=== PATIENT | female | born 1990 | race African-American/Black ===

== ENCOUNTER 2016-09-21 12:39 | Emergency (ER) | payer OTHER ==
[~2016-09-21] VITALS: Ht 157.5 cm; Wt 76.6 kg
[~2016-09-21 12:39] MED LIST: FIORICET 50-301 EACH PO; NAPROSYN500 MG PO; NOHOMEMEDS; PRENATAL MULTI1 EAC2 PO; VALIUM5 MG PO; ZOFRAN ODT4 MG PO; ZOFRAN4 MG PO
[2016-09-21 13:15] LABS: ADD MIUA? YES; BILIRUBIN NEGATIVE; BLOOD NEGATIVE; COLOR YELLOW ((YELLOW)); GLUCOSE (STRIP) NEGATIVE; KETONES NEGATIVE; LEUKOCYTES TRACE; NITRITE NEGATIVE; PROTEIN (STRIP) NEGATIVE; SPECIFIC GRAVITY 1.011 (1.000-1.030); UROBILINOGEN 0.2 MG/DL (0.2-1.0)
[2016-09-21 13:18] LABS: BACTERIA RARE /HPF; EPITHELIAL CELLS 2+ /HPF; MUCUS TRACE /LPF; RED BLOOD CELLS 0-5 /HPF (0-5)
[2016-09-21] MEDS ORDERED: FLEXERIL10 MG PO (13:47)
[2016-09-21 13:55] VITALS: BP 107/68
== END 2016-09-21 13:50 | disposition home or self-care (01) ==
LOC: EME 12:39 → RME 12:39
PROVIDERS: Physician Assistant
DX: O26.893 Other specified pregnancy related conditions, third trimester (principal); M54.5 Low back pain; Z3A.32 32 weeks gestation of pregnancy
CPT/HCPCS: 81003; 99281; 99284

== ENCOUNTER 2016-12-10 11:05 | Inpatient (IN) | payer OTHER ==
[~2016-12-10] VITALS: Ht 157.5 cm; Wt 82.3 kg
[2016-12-10] VITALS (20 sets, daily range): BP systolic 112–150; BP diastolic 64–126
[~2016-12-10 11:05] MED LIST changes: +FLEXERIL10 MG PO
[2016-12-10 13:00] LABS: EOSINOPHIL (%) 0.3 % (0-5); HEMATOCRIT 31.9 % (36.0-46.0); IMMATURE GRANULOCYTE (%) 0.3 % (0.0-0.7); INSTRUMENT ABS NEUTROPHIL CT 4.3 K/uL; LYMPHOCYTE COUNT 1.8 K/uL (1.0-2.8); MCH 27.4 PG (29.0-34.0); MCHC 33.9 G/DL (30.0-36.0); MEAN PLAT.VOLUME 10.7 uM^3 (9.5-12.4); MONOCYTE (%) 9.7 % (3-12); MONOCYTE COUNT 0.7 K/uL (0-0.8); NEUTROPHIL (%) 63.4 % (45-76); NEUTROPHIL COUNT 4.3 K/uL (1.8-6.4); PLATELET COUNT 190 K/uL (156-360); RBC DIS.WIDTH-CV 15.1 % (11.8-14.6); RBC DIS.WIDTH-SD 44.3 % (39-53); RED BLOOD COUNT 3.94 M/uL (3.80-5.20); WHITE BLOOD COUNT 6.7 K/uL (4.1-10.2)
[2016-12-11] VITALS (16 sets, daily range): BP systolic 121–144; BP diastolic 60–87
[2016-12-11] MEDS ORDERED: IBUPROFEN800 MG PO (04:30)
[2016-12-12 07:27] VITALS: BP 121/65
[2016-12-12 14:59] VITALS: BP 126/80
== END 2016-12-12 19:40 | disposition home or self-care (01) | DRG 775 ==
LOC: LDRP-OP → 2WEST 11:06 → LDRP-OP 01-07 14:00
PROVIDERS: Obstetrics & Gynecology
PROC: 10E0XZZ Delivery of Products of Conception, External Approach (ICD-10-PCS; principal; 2016-12-11)
DX: O63.1 Prolonged second stage (of labor) (principal); O69.1XX0 Labor and delivery complicated by cord around neck, with compression, not applicable or unspecified; Z37.0 Single live birth; Z3A.40 40 weeks gestation of pregnancy; O77.0 Labor and delivery complicated by meconium in amniotic fluid; O99.013 Anemia complicating pregnancy, third trimester; D57.3 Sickle-cell trait
CPT/HCPCS: 85025; C1755; G0378; J0595; J2795; J3010; J7120

== ENCOUNTER 2017-10-24 23:18 | Emergency (ER) | payer OTHER ==
[~2017-10-24] VITALS: Ht 157.5 cm; Wt 76.1 kg
[~2017-10-24 23:18] MED LIST changes: +IBUPROFEN800 MG PO
[2017-10-24 23:44] LABS: HEMOGLOBIN 12.7 G/DL (11.9-15.5); MCH 27.8 PG (29.0-34.0); MCHC 34.3 G/DL (30.0-36.0); PLATELET COUNT 224 K/uL (156-360); RBC DIS.WIDTH-CV 13.9 % (11.8-14.6); RBC DIS.WIDTH-SD 40.8 % (39-53); RED BLOOD COUNT 4.57 M/uL (3.80-5.20)
[2017-10-24 23:52] LABS: CHLORIDE 107 mEq/L (99-109); POTASSIUM 3.6 mEq/L (3.7-5.4); SODIUM 139 mEq/L (136-147)
[2017-10-24 23:54] LABS: GLUCOSE 93 mg/dL (70-99)
[2017-10-24 23:58] LABS: CREATININE 0.8 mg/dL (0.6-1.3); GFR ESTIMATE (CALCULATED) > 59 mL/min/
[2017-10-24 23:59] LABS: UREA NITROGEN (BUN) 8 mg/dL (9-23)
[2017-10-25 00:06] LABS: TROP-I INTERPRETATION NEGATIVE; TROPONIN-I < 0.01 ng/mL (0.0-0.30)
[2017-10-25] MEDS ORDERED: VALIUM5 MG PO (01:32)
[2017-10-25] MEDS ORDERED: MOTRIN800 MG PO (01:32)
[2017-10-25 02:04] VITALS: BP 110/65
[2017-10-25 02:04] LABS: CREATINE KINASE 108 IU/L (1-294)
== END 2017-10-25 02:05 | disposition home or self-care (01) ==
LOC: EME 23:18
DX: S29.011A Strain of muscle and tendon of front wall of thorax, initial encounter (principal); S16.1XXA Strain of muscle, fascia and tendon at neck level, initial encounter; S46.919A Strain of unspecified muscle, fascia and tendon at shoulder and upper arm level, unspecified arm, initial encounter; X58.XXXA Exposure to other specified factors, initial encounter; I49.9 Cardiac arrhythmia, unspecified
CPT/HCPCS: 71046; 80048; 82550; 84484; 85027; 93005; 99281; 99284